=== PATIENT | male | born 1985 | race Caucasian/White ===

== ENCOUNTER 2023-10-26 14:45 | Emergency (ER) | payer SELFPAY ==
[2023-10-26 15:00] VITALS: BP 140/79; PULSE 72; RESP 12; TEMP 36.8; O2SAT 99; BMI 44.0
--- NOTE | 2023-10-26 15:20 | XR_ITS ---
FINAL REPORT CLINICAL HISTORY: Twisted ankle FINDINGS: Right foot Three views were obtained. There are healed or healing fractures of the 2nd through 5th proximal metatarsals. There is a healing fracture line at the base of the 4th metatarsal, may represent nonunion. Large accessory navicular is identified. IMPRESSION: Healing fractures of the 2nd through 5th proximal metatarsals with possible nonunion of the 4th metatarsal. Reviewed, Interpreted and Dictated by Kun Land MD Transcribed by Caro Farooq Authenticated and [facility]
--- NOTE | 2023-10-26 15:20 | XR_ITS ---
FINAL REPORT CLINICAL HISTORY: twisted ankle FINDINGS: Right ankle Three views were obtained. There is no acute fracture or dislocation. The joint spaces appear normal. There is soft tissue swelling. IMPRESSION: No acute process. Reviewed, Interpreted and Dictated by Kun Land MD Transcribed by Caro Farooq Authenticated and [facility]
--- NOTE | 2023-10-26 15:21 | ED_ITS ---
Discharge Plan Disposition Patient Disposition: Home, Self-Care Condition: Good Prescriptions Prescriptions: New ibuprofen [IBU] 800 mg tablet 800 mg PO Q8HP PRN (Reason: Moderate Pain) Qty: 30 0RF Referrals Follow up/Referrals: Provider,Referral, [Primary Care Provider] - See instructions Dari Hackett DPM [Staff Physician] - See instructions Activity Restrictions/Add. Instructions Additional Instructions/Restrictions: Rest the extremity, Elevate the extremity as tolerated while you are resting. Take ibuprofen for pain. I sent in a prescription to your pharmacy. Follow up with Dr. Hackett (podiatry). I put in a referral but you need to call her office and schedule an appointment. Follow up with your regular doctor. GO TO THE ER FOR ANY WORSENING SYMPTOMS Clinical Impressions Clinical Impression: Foot fracture, right Stand Alone Forms Stand Alone Forms: Work/School Release Instructions Patient Instructions: How to Use Crutches, Foot Fracture, DI for Foot Fracture, How to Use a Walking Boot Discharge ED Provider: Yuniel Newman [facility] [place], [place] General Stated complaint: right foot pain Time Seen by Provider: 10/26/23 15:21 History of Present Illness Provider Complaint: He states that he twisted his right foot and ankle about 10 days ago. Since then he has had right foot pain and swelling. He states that walking and bearing weight on the foot makes the pain worse. Related Data Previous Rx's Medication Instructions Recorded ibuprofen 800 mg tablet (IBU) 800 mg PO Q8HP PRN Moderate Pain 10/26/23 #30 tabs Allergies Allergy/AdvReac Type Severity Reaction Status Date / Time No Known Allergies Allergy Verified 10/26/23 15:35 [facility] Disclaimer: The information contained in this section may have been updated after the patient was seen, as this information can be updated by other users. Social History Smoking Status: Never smoker alcohol intake: never current occupational status: employed Travel in the last 8 weeks: None ROS Obtained: Yes All systems reviewed & no additional complaints except as documented Constitutional Constitutional: Denies chills and Denies fever(s) Eyes Eyes: Denies eye discharge ENT Ears, Nose, Mouth, and Throat: Denies dizziness, Denies otalgia and Denies sore throat Cardiovascular Cardiovascular: Denies chest pain Respiratory Respiratory: Denies shortness of breath, Denies chest congestion, Denies cough, Denies stridor and Denies wheezing Gastrointestinal Gastrointestingal: Denies nausea or vomiting Musculoskeletal Musculoskeletal: Reports as per HPI Integumentary/Breasts Skin/Breast: Denies redness, Denies rash and Denies wounds Neurologic Neurologic: Denies dizziness and Denies paresthesias Allergic/Immunologic Allergic/Immunologic: Denies wheezing Physical Exam General General appearance: alert and in no apparent distress Head Head exam: atraumatic, normocephalic and normal inspection Eye Eye exam: Present normal appearance, PERRL and EOMI ENT ENT exam: Present normal exam, normal oropharynx, mucous membranes moist, TM's normal bilaterally and normal external ear exam Neck Neck exam: Present normal inspection, full ROM and trachea midline; Absent meningismus or lymphadenopathy Chest Chest inspection: Present normal inspection and symmetric chest wall rise; Absent tenderness Respiratory Respiratory exam: Present normal lung sounds bilaterally; Absent respiratory distress Cardiovascular Cardiovascular exam: Present regular rate and normal rhythm; Absent JVD Abdominal Exam Abdominal exam: Present soft and normal bowel sounds; Absent distention, tenderness or guarding Extremities Exam Extremities exam: Present normal capillary refill; Absent calf tenderness Expanded Lower Extremity Exam Right: Knee exam: Present normal inspection, full ROM and knee extension intact; Absent tenderness Lower leg exam: Present normal inspection, full ROM and Achilles tendon intact; Absent tenderness or Homans' sign Ankle exam: Present normal inspection and full ROM; Absent tenderness, swelling, abrasion, laceration, ecchymosis, deformity, crepitus, dislocation, erythema, tenderness over talofibular lig or anterior draw sign Foot/toe exam: Present tenderness and swelling; Absent full ROM, abrasion, laceration, ecchymosis, deformity, crepitus, dislocation, erythema, amputation, puncture wound, foreign body, calcaneal tenderness, tenderness at base of 5th metatarsal, nail avulsion or subungual hematoma Neurovascular/Tendon exam: Present normal capillary refill; Absent pulse deficit, motor deficit, sensory deficit, tendon deficit or extremity cold to touch Gait: observed and normal Back Exam Back exam: Present normal inspection; Absent tenderness Neurological Exam Neurological exam: Present alert and oriented X3 Psychiatric Psychiatric exam: Present normal affect and normal mood Skin Skin exam: Present warm, dry, intact and normal color Lymphatic Lymphatic Findings: no adenopathy Medical Decision Making Bradley Inquiry Pt receiving controlled substance: No Procedures Risk/Benefits of Procedure(s) Were Explained: Yes Orthopedic Splinting/Casting Injury #1: Side: right Lower Extremity Injury Location: ankle and foot Lower Extremity Immobilizer: boot orthosis Other Orthopedic Equipment: crutches Post Cast/Splinting Neuro Status: intact and no change Post Cast/Splinting Vasc Status: intact and no change
[2023-10-26 17:40] VITALS: BP 140/79; PULSE 72; RESP 12; TEMP 36.8; O2SAT 99
== END 2023-10-26 17:40 | disposition home or self-care (01) ==
LOC: ER 14:51 → UTC 15:00
PROVIDERS: Emergency Provider Nurse Practitioner Family
DX: S92.901A Unspecified fracture of right foot, initial encounter for closed fracture (principal); M79.671 Pain in right foot; X50.1XXA Overexertion from prolonged static or awkward postures, initial encounter
CPT/HCPCS: 73610; 73630; 99204; 99212; G0463

== ENCOUNTER 2024-01-04 14:38 | Emergency (ER) | payer OTHER, SELFPAY ==
[2024-01-04 15:05] VITALS: BP 128/66; PULSE 79; RESP 18; TEMP 36.9; O2SAT 99; BMI 44.0
--- NOTE | 2024-01-04 15:10 | ED_ITS ---
Discharge Plan Disposition Patient Disposition: Home, Self-Care Condition: Good Prescriptions Prescriptions: New doxycycline monohydrate 100 mg tablet 100 mg PO Q12 10 Days Qty: 20 0RF triamcinolone acetonide 0.1 % cream 1 applic topical BID PRN (Reason: itching) Qty: 30 0RF methylprednisolone 4 mg Tablets,Dose Pack 4 mg PO DIRECTED 6 Days Qty: 21 0RF Rx Instructions: Take 1 pack as directed for 6 days Referrals Follow up/Referrals: Lupe Howard MD [Referring] - See instructions Provider,MD Khari [Primary Care Provider] - See instructions Activity Restrictions/Add. Instructions Additional Instructions/Restrictions: Use the medication as directed. Don't put the topical steroids (triamcinolone) on your face or your groin. Follow up with your regular doctor. Follow up with the urban design consultant if you continue to have this problem. I put in a referral to Dr. Howard. Her office phone number will be on this paperwork. GO TO THE ER FOR ANY WORSENING SYMPTOMS OR CONCERNS Clinical Impressions Clinical Impression: Atopic dermatitis Stand Alone Forms Stand Alone Forms: Work/School Release Instructions Patient Instructions: DI for Atopic Dermatitis-Adult, Triamcinolone Topical, Doxycycline, Methylprednisolone Discharge ED Provider: Yuniel Newman [facility] [place] HPI General Stated complaint: rash Time Seen by Provider: 01/04/24 15:10 History of Present Illness Provider Complaint: He states that he has had a rash on the front of his thighs and his upper back for the past 2 months approximately. He states that he has a history of eczema, but he is unsure if that is what he is having now. He states that the areas do itch. Related Data Previous Rx's Medication Instructions Recorded doxycycline monohydrate 100 mg 100 mg PO Q12 10 days #20 tabs 01/04/24 tablet methylprednisolone 4 mg tablets in 4 mg PO DIRECTED 6 days #21 tabs 01/04/24 a dose pack triamcinolone acetonide 0.1 % 1 applic topical BID PRN itching 01/04/24 topical cream #30 grams Allergies Allergy/AdvReac Type Severity Reaction Status Date / Time No Known Allergies Allergy Verified 01/04/24 15:30 [facility] Disclaimer: The information contained in this section may have been updated after the patient was seen, as this information can be updated by other users. Social History Smoking Status: Never smoker alcohol intake: never current occupational status: employed Travel in the last 8 weeks: None ROS Obtained: Yes All systems reviewed & no additional complaints except as documented Constitutional Constitutional: Denies chills and Denies fever(s) Eyes Eyes: Denies eye discharge ENT Ears, Nose, Mouth, and Throat: Denies dizziness, Denies otalgia and Denies sore throat Cardiovascular Cardiovascular: Denies chest pain Respiratory Respiratory: Denies shortness of breath, Denies chest congestion, Denies cough, Denies stridor and Denies wheezing Gastrointestinal Gastrointestingal: Denies nausea or vomiting Musculoskeletal Musculoskeletal: Reports system reviewed and no additional complaints, except as documented and Denies arthralgias Integumentary/Breasts Skin/Breast: Reports as per HPI and Reports rash Neurologic Neurologic: Denies dizziness and Denies paresthesias Allergic/Immunologic Allergic/Immunologic: Denies wheezing Physical Exam General General appearance: alert and in no apparent distress Head Head exam: atraumatic, normocephalic and normal inspection Eye Eye exam: Present normal appearance, PERRL and EOMI ENT ENT exam: Present normal exam, normal oropharynx, mucous membranes moist, TM's normal bilaterally and normal external ear exam Neck Neck exam: Present normal inspection, full ROM and trachea midline; Absent meningismus or lymphadenopathy Chest Chest inspection: Present normal inspection and symmetric chest wall rise; Absent tenderness Respiratory Respiratory exam: Present normal lung sounds bilaterally; Absent respiratory distress Cardiovascular Cardiovascular exam: Present regular rate and normal rhythm; Absent JVD Abdominal Exam Abdominal exam: Present soft and normal bowel sounds; Absent distention, tenderness or guarding Extremities Exam Extremities exam: Present normal inspection, full ROM and normal capillary refill; Absent calf tenderness Back Exam Back exam: Present normal inspection; Absent tenderness Neurological Exam Neurological exam: Present alert and oriented X3 Psychiatric Psychiatric exam: Present normal affect and normal mood Skin Skin exam: Present rash Lymphatic Lymphatic Findings: no adenopathy Medical Decision Making Medical Records Medical records reviewed: No I reviewed the patient's medical records. Bradley Inquiry Pt receiving controlled substance: No
[2024-01-04 16:12] VITALS: BP 128/66; PULSE 79; RESP 18; TEMP 36.9; O2SAT 99
== END 2024-01-04 16:12 | disposition home or self-care (01) ==
PROVIDERS: Emergency Provider Nurse Practitioner Family
DX: L20.9 Atopic dermatitis, unspecified (principal)
CPT/HCPCS: 99212; 99214; G0463

== ENCOUNTER 2024-01-08 11:48 | Emergency (ER) | payer OTHER, SELFPAY ==
[2024-01-08 11:55] VITALS: BP 134/79; PULSE 78; RESP 21; TEMP 36.8; O2SAT 99; BMI 44.7
--- NOTE | 2024-01-08 12:00 | XR_ITS ---
PROCEDURE INFORMATION: Exam: XR Right Ankle Exam date and time: 01/08/2024 12:02 PM Age: 38 years old Clinical indication: Pain; Ankle; Right; Additional info: Stepped in a hole TECHNIQUE: Imaging protocol: Radiologic exam of the right ankle. Views: 3 or more views. COMPARISON: CR XR ANKLE RT MIN 3V 10/26/2023 3:54 PM FINDINGS: Bones/joints: Normal. Soft tissues: Normal. IMPRESSION: No acute findings.
--- NOTE | 2024-01-08 12:00 | XR_ITS ---
PROCEDURE INFORMATION: Exam: XR Right Foot Exam date and time: 01/08/2024 12:00 PM Age: 38 years old Clinical indication: Pain; Foot; Right; Additional info: Stepped in a hole TECHNIQUE: Imaging protocol: Radiologic exam of the right foot. Views: 3 or more views. COMPARISON: CR XR FOOT RT MIN 3V 10/26/2023 3:57 PM FINDINGS: Bones/joints: Periosteal reaction demonstrated in association with 4th metatarsal fracture. Fracture plane still visible. Fracture planes involving the second, 3rd and 4th Soft tissues: Normal. IMPRESSION: 1. Healed 2nd 3rd and 4th metatarsal fractures. 2. Healing 4th metatarsal fracture. Nonunion could not be excluded.
--- NOTE | 2024-01-08 12:25 | ED_ITS ---
Discharge Plan Disposition Patient Disposition: Home, Self-Care Condition: Good Prescriptions Prescriptions: No Action No Known Home Medications Referrals Follow up/Referrals: Provider,Referral, MD [Primary Care Provider] - See instructions Dari Hackett DPM [Staff Physician] - See instructions Activity Restrictions/Add. Instructions Additional Instructions/Restrictions: Rest the extremity, apply ice for 15 minutes as tolerated three or four times per day, Wear the padmaja wrap for compression, Elevate the extremity as tolerated while you are resting. Take ibuprofen for pain. Follow up with Dr. Hackett (podiatry) as instructed before. I put in a referral then. You need to call her office and schedule an appointment. Keep using the crutches and the boot that we gave you on your last visit. Follow up with your regular doctor. GO TO THE ER FOR ANY WORSENING SYMPTOMS Clinical Impressions Clinical Impression: Foot fracture, right Stand Alone Forms Stand Alone Forms: Work/School Release Instructions Patient Instructions: How to Use Crutches, DI for Foot Fracture, How to Use a Walking Boot Discharge ED Provider: Yuniel Nemwan [facility] General Stated complaint: AO 01/07 10:49 Right foot and ankle pain swelling Mode of Arrival: Ambulatory Source of Information: Patient Limitations: No Limitations Time Seen by Provider: 01/08/24 12:05 Description of Symptoms (Recalled from Triage Doc. by RN): PATIENT C/O PAIN AND SWELLING TO RIGHT FOOT AFTER STEPPING IN A HOLE TODAY HEENT Symptoms (Recalled from RN notes): No Resp Symptoms (Recalled from RN notes): No Skin Symptoms (Recalled from RN notes): No MS Symptoms (Recalled from RN notes): Yes Functional Status (Recalled from RN notes): WNL History of Present Illness Provider Complaint: He states that he stepped into a hole in his yard today and began have right foot pain again. He was diagnosed with a broken right foot on 10/26/23. He states that he did not follow up with ortho or podiatry after that visit. Related Data Home Medications Medication Instructions Recorded Confirmed No Known Home Medications 01/08/24 01/08/24 Allergies Allergy/AdvReac Type Severity Reaction Status Date / Time No Known Allergies Allergy Verified 01/04/24 15:30 Worker's Comp Is this a Worker's Comp case?: No [facility] Disclaimer: The information contained in this section may have been updated after the patient was seen, as this information can be updated by other users. Medical History (Updated 01/08/24 @ 13:08 by Yuniel Newman APRN) No significant past medical history Social History Smoking Status: Never smoker alcohol intake: never current occupational status: employed Travel in the last 8 weeks: None ROS Obtained: Yes All systems reviewed & no additional complaints except as documented Constitutional Constitutional: Denies chills and Denies fever(s) Eyes Eyes: Denies eye discharge ENT Ears, Nose, Mouth, and Throat: Denies dizziness, Denies otalgia and Denies sore throat Cardiovascular Cardiovascular: Denies chest pain Respiratory Respiratory: Denies shortness of breath, Denies chest congestion, Denies cough, Denies stridor and Denies wheezing Gastrointestinal Gastrointestingal: Denies nausea or vomiting Musculoskeletal Musculoskeletal: Reports as per HPI Integumentary/Breasts Skin/Breast: Denies rash Neurologic Neurologic: Denies dizziness and Denies paresthesias Allergic/Immunologic Allergic/Immunologic: Denies wheezing Physical Exam General General appearance: alert and in no apparent distress Head Head exam: atraumatic, normocephalic and normal inspection Eye Eye exam: Present normal appearance, PERRL and EOMI ENT ENT exam: Present normal exam, normal oropharynx, mucous membranes moist, TM's normal bilaterally and normal external ear exam Neck Neck exam: Present normal inspection, full ROM and trachea midline; Absent meningismus or lymphadenopathy Chest Chest inspection: Present normal inspection and symmetric chest wall rise; Absent tenderness Respiratory Respiratory exam: Present normal lung sounds bilaterally; Absent respiratory distress Cardiovascular Cardiovascular exam: Present regular rate and normal rhythm; Absent JVD Abdominal Exam Abdominal exam: Present soft and normal bowel sounds; Absent distention, tenderness or guarding Extremities Exam Extremities exam: Present normal capillary refill; Absent calf tenderness Expanded Lower Extremity Exam Right: Knee exam: Present normal inspection, full ROM and knee extension intact; Absent tenderness Lower leg exam: Present normal inspection, full ROM and Achilles tendon intact; Absent tenderness or Homans' sign Ankle exam: Present normal inspection and full ROM; Absent tenderness Foot/toe exam: Present tenderness and swelling; Absent full ROM, abrasion, laceration, ecchymosis, deformity, crepitus, dislocation, erythema, amputation, puncture wound, foreign body, calcaneal tenderness, tenderness at base of 5th metatarsal, nail avulsion or subungual hematoma Neurovascular/Tendon exam: Present normal capillary refill and normal 2- point discrimination; Absent pulse deficit, motor deficit, sensory deficit, tendon deficit, extremity cold to touch or pallor Gait: observed and limited by pain Back Exam Back exam: Present normal inspection; Absent tenderness Neurological Exam Neurological exam: Present alert and oriented X3 Psychiatric Psychiatric exam: Present normal affect and normal mood Skin Skin exam: Present warm, dry, intact and normal color Lymphatic Lymphatic Findings: no adenopathy Medical Decision Making Medical Records Medical records reviewed: No I reviewed the patient's medical records. Bradley Inquiry Pt receiving controlled substance: No Vital Signs: 01/08/24 11:55 Temperature 98.3 F Temperature Source Oral Pulse Rate [Left Brachial] 78 Respiratory Rate 21 Blood Pressure [Left Arm] 134/79 Blood Pressure Mean [Left Arm] 97 Blood Pressure Source [Left Arm] Automatic Cuff Blood Pressure Position [Left Arm] Sitting 02 Sat by Pulse Oximetry 99 Oxygen Delivery Method Room Air Orders (Tests/Meds): ORDERS Category Date Time Status Ankle XR -Right minimum 3 Views [XR ankle RT min 3V] Exams 01/08/24 12:00 Taken Stat XR foot RT min 3V Stat Exams 01/08/24 12:00 Taken Radiology Data #1: Image(s): Foot/Toes Image Reviewed: Yes I reviewed the patient's radiology image and Yes I have reviewed radiologist's interpretation Preliminary Findings: Abnormal Accession No. : [id number] Patient Name / ID : CHECO JAIMES / [id number] Exam Date : 01/08/2024 12:00:30 ( Final ) Study Comment : Sex / Age : M / 38Y Creator : ALMITA LIND Dictator : Wireless Construction Manager : [employer] Hospitalist : ALMITA LIND Approver2 : Report Date : 01/08/2024 12:42:53 My Comment : PROCEDURE INFORMATION: Exam: XR Right Foot Exam date and time: 01/08/2024 12:00 PM Age: 38 years old Clinical indication: Pain; Foot; Right; Additional info: Stepped in a hole TECHNIQUE: Imaging protocol: Radiologic exam of the right foot. Views: 3 or more views. COMPARISON: CR XR FOOT RT MIN 3V 10/26/2023 3:57 PM FINDINGS: Bones/joints: Periosteal reaction demonstrated in association with 4th metatarsal fracture. Fracture plane still visible. Fracture planes involving the second, 3rd and 4th Soft tissues: Normal. IMPRESSION: 1. Healed 2nd 3rd and 4th metatarsal fractures. 2. Healing 4th metatarsal fracture. Nonunion could not be excluded. #2: Image(s): Ankle Image Reviewed: Yes I reviewed the patient's radiology image and Yes I have reviewed radiologist's interpretation Preliminary Findings: No Fracture Seen Accession No. : [id number] Patient Name / ID : CHECO JAIMES / [id number] Exam Date : 01/08/2024 12:02:00 ( Final ) Study Comment : Sex / Age : M / 38Y Creator : ALMITA LIND Dictator : Wireless Construction Manager : [employer] Hospitalist : ALMITA LIND Approver2 : Report Date : 01/08/2024 12:43:56 My Comment : PROCEDURE INFORMATION: Exam: XR Right Ankle Exam date and time: 01/08/2024 12:02 PM Age: 38 years old Clinical indication: Pain; Ankle; Right; Additional info: Stepped in a hole TECHNIQUE: Imaging protocol: Radiologic exam of the right ankle. Views: 3 or more views. COMPARISON: CR XR ANKLE RT MIN 3V 10/26/2023 3:54 PM FINDINGS: Bones/joints: Normal. Soft tissues: Normal. IMPRESSION: No acute findings.
[2024-01-08 13:25] VITALS: BP 134/79; PULSE 78; RESP 21; TEMP 36.8; O2SAT 99
== END 2024-01-08 13:28 | disposition home or self-care (01) ==
PROVIDERS: Emergency Provider Nurse Practitioner Family
DX: M79.671 Pain in right foot (principal); R22.41 Localized swelling, mass and lump, right lower limb; S92.901D Unspecified fracture of right foot, subsequent encounter for fracture with routine healing; W18.42XA Slipping, tripping and stumbling without falling due to stepping into hole or opening, initial encounter; X50.1XXD Overexertion from prolonged static or awkward postures, subsequent encounter
CPT/HCPCS: 73610; 73630; 99212; 99213; G0463

== ENCOUNTER 2024-03-14 18:01 | Emergency (ER) | payer OTHER, SELFPAY ==
[2024-03-14 18:11] VITALS: BP 149/83; PULSE 89; RESP 16; TEMP 36.7; O2SAT 99; BMI 44.7
--- NOTE | 2024-03-14 18:16 | ED_ITS ---
Discharge Plan Disposition Patient Disposition: Home, Self-Care Condition: Good Prescriptions Prescriptions: New clotrimazole 1 % cream 1 applic topical BID 28 Days Qty: 90 0RF Referrals Follow up/Referrals: Provider,Referral, MD [Primary Care Provider] - See instructions Activity Restrictions/Add. Instructions Additional Instructions/Restrictions: Use the medication as prescribed. Try to stay as dry as you can while you are working. Follow up with your primary care physician. 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 GO TO THE ER FOR WORSENING SYMPTOMS OR CONCERNS Clinical Impressions Clinical Impression: Tinea cruris Stand Alone Forms Stand Alone Forms: Work/School Release Instructions Patient Instructions: Tinea Cruris: AKA Jock Itch, Clotrimazole Topical Discharge ED Provider: Yuniel Newman [facility] [place] General Stated complaint: rash Mode of Arrival: Ambulatory Source of Information: Patient Limitations: No Limitations Time Seen by Provider: 03/14/24 18:14 Description of Symptoms (Recalled from Triage Doc. by RN): pt c/o an itching/burning rash on his trunk, back and groin. this has been ongoing since 03/11. pt reports he gets this same rash yearly in the summer. pt states he has an appointment with dermatology but he was unable to get in for another two weeks. HEENT Symptoms (Recalled from RN notes): No Resp Symptoms (Recalled from RN notes): No Skin Symptoms (Recalled from RN notes): Yes MS Symptoms (Recalled from RN notes): No Functional Status (Recalled from RN notes): wnl History of Present Illness Provider Complaint: He states that he has had an itchy rash in his groin area and his upper thigh areas. He has a history of getting jock itch and that is what he thinks is happening now. Related Data Previous Rx's Medication Instructions Recorded clotrimazole 1 % topical cream 1 applic topical BID 4 weeks #90 03/14/24 grams Allergies Allergy/AdvReac Type Severity Reaction Status Date / Time No Known Allergies Allergy Verified 03/14/24 18:15 Worker's Comp Is this a Worker's Comp case?: No [facility] Disclaimer: The information contained in this section may have been updated after the patient was seen, as this information can be updated by other users. Medical History (Updated 03/14/24 @ 18:34 by Yuniel Newman APRN) No significant past medical history Social History Smoking Status: Never smoker alcohol intake: never current occupational status: employed Travel in the last 8 weeks: None ROS Obtained: Yes All systems reviewed & no additional complaints except as documented Constitutional Constitutional: Denies chills, Reports fever(s) and Reports poor appetite Eyes Eyes: Denies eye discharge ENT Ears, Nose, Mouth, and Throat: Denies ear discharge, Reports otalgia, Denies hearing loss, Denies sinus pain and Reports sore throat Cardiovascular Cardiovascular: Denies chest pain and Denies dyspnea Respiratory Respiratory: Denies chest congestion, Reports cough and Denies dyspnea Gastrointestinal Gastrointestingal: Denies abdominal pain, diarrhea, nausea or vomiting Musculoskeletal Musculoskeletal: Denies arthralgias Integumentary/Breasts Skin/Breast: Denies rash Physical Exam General General appearance: alert and in no apparent distress Head Head exam: atraumatic, normocephalic and normal inspection Eye Eye exam: Present normal appearance; Absent PERRL or EOMI ENT ENT exam: Present mucous membranes moist and normal external ear exam Expanded ENT Exam TM/Canal exam: Bilateral TM: erythema, bulging and effusion Nose exam: Absent sinus tenderness Nasal speculum exam: Bilateral: normal Mouth exam: Present normal external inspection and other; Absent drooling Teeth exam: Present normal inspection Throat exam: Present tonsillar erythema and tonsillomegaly Neck Neck exam: Present normal inspection, full ROM and trachea midline; Absent tenderness, meningismus or lymphadenopathy Chest Chest inspection: Present normal inspection and symmetric chest wall rise; Absent tenderness Respiratory Respiratory exam: Present normal lung sounds bilaterally; Absent respiratory distress, wheezes or stridor Cardiovascular Cardiovascular exam: Present regular rate, normal rhythm and normal heart sounds; Absent tachycardia or irregular rhythm Abdominal Exam Abdominal exam: Present soft and normal bowel sounds; Absent distention, tenderness, guarding, rebound or rigidity Extremities Exam Extremities exam: Present normal inspection and normal capillary refill; Absent tenderness, joint swelling or calf tenderness Back Exam Back exam: Present normal inspection and full ROM; Absent tenderness, CVA tenderness (R) or CVA tenderness (L) Neurological Exam Neurological exam: Present alert, oriented X3, CN II-XII intact, normal gait and reflexes normal; Absent motor sensory deficit Psychiatric Psychiatric exam: Present normal affect and normal mood Skin Skin exam: Present rash Lymphatic Lymphatic Findings: no adenopathy Medical Decision Making Medical Records Medical records reviewed: No I reviewed the patient's medical records. Bradley Inquiry Pt receiving controlled substance: No Vital Signs: 03/14/24 18:11 Temperature 98.1 F Temperature Source Oral Pulse Rate [Left] 89 Respiratory Rate 16 Blood Pressure [Right Arm] 149/83 H Blood Pressure Mean [Right Arm] 105 Blood Pressure Source [Right Arm] Automatic Cuff Blood Pressure Position [Right Arm] Sitting 02 Sat by Pulse Oximetry 99
[2024-03-14 18:41] VITALS: BP 149/83; PULSE 89; RESP 16; TEMP 36.7
== END 2024-03-14 18:43 | disposition home or self-care (01) ==
PROVIDERS: Emergency Provider Nurse Practitioner Family
DX: B35.6 Tinea cruris (principal)
CPT/HCPCS: 99212; 99214; G0463

== ENCOUNTER 2024-05-01 14:19 | Emergency (ER) | payer OTHER, SELFPAY ==
--- NOTE | 2024-05-01 15:54 | EXP.UTC ---
Discharge Plan Disposition Patient Disposition: Home, Self-Care Condition: Good Prescriptions Prescriptions: No Action clotrimazole 1 % cream 1 applic topical BID 28 Days Qty: 90 0RF Referrals Follow up/Referrals: Provider,Referral, MD [Primary Care Provider] - See instructions Activity Restrictions/Add. Instructions Additional Instructions/Restrictions: *Monitor Temp, Over the counter Motrin or Tylenol as directed/as needed Tylenol every 4 hours and Motrin every 6 hours (as long as your family doctor has told you that you can take it) for fever or pain. and straight to ER if unable to lower temp less than 101.0 after medication given *Sleep elevated *Humidifier/Vaporizer Follow up IMMEDIATELY for new or worsening symptoms or no Noticeable improvement over the next 48-72 hours. 911 for difficulty breathing or swallowing You were tested for today for COVID19 your test result should be back in the next 24 hours, you may check the [facility] [employer] [facility] for results of your test Clinical Impressions Clinical Impression: Exposure to COVID-19 virus Stand Alone Forms Stand Alone Forms: Work/School Release Instructions Patient Instructions: COVID-19 Viral Test, DI for COVID-19 (Suspected or Confirmed ) Print Language Print Language: Pashto Discharge ED Provider: Shawanda Alvares [facility] [place] General Stated complaint: covid test Time Seen by Provider: 05/01/24 15:54 History of Present Illness Provider Complaint: Patient states that he is needing to get tested for COVID States he is not having any symptoms but 3 people at work tested positive so he came in to get tested Related Data Previous Rx's ?Medication ?Instructions ?Recorded clotrimazole 1 % topical cream 1 applic topical BID 4 weeks #90 03/14/24 grams Allergies Allergy/AdvReac Type Severity Reaction Status Date / Time No Known Allergies Allergy Verified 03/14/24 18:15 [facility] Disclaimer: The information contained in this section may have been updated after the patient was seen, as this information can be updated by other users. Medical History (Updated 05/01/24 @ 15:56 by Shawanda Alvares APRN) No significant past medical history Social History Smoking Status: Never smoker alcohol intake: never current occupational status: employed Travel in the last 8 weeks: None ROS Obtained: Yes All systems reviewed & no additional complaints except as documented and Yes Systems reviewed as appropriate & no additional complaints except as documented Constitutional Constitutional: Reports system reviewed and no additional complaints, except as documented, Reports as per HPI, Denies body ache, Denies chills, Denies fever(s) and Denies headache(s) ENT Ears, Nose, Mouth, and Throat: Reports system reviewed and no additional complaints, except as documented, Reports as per HPI, Denies headache(s), Denies nasal congestion, Denies nasal discharge and Denies sore throat Cardiovascular Cardiovascular: Reports system reviewed and no additional complaints, except as documented and Reports as per HPI Respiratory Respiratory: Reports system reviewed and no additional complaints, except as documented and Reports as per HPI Gastrointestinal Gastrointestingal: Reports system reviewed and no additional complaints, except as documented and as per HPI; Denies abdominal pain, diarrhea, nausea or vomiting Neurologic Neurologic: Denies headache(s) Physical Exam General General appearance: alert and in no apparent distress ENT ENT exam: Present normal exam, normal oropharynx, mucous membranes moist and TM's normal bilaterally Respiratory Respiratory exam: Present normal lung sounds bilaterally; Absent respiratory distress or wheezes Cardiovascular Cardiovascular exam: Present regular rate, normal rhythm and normal heart sounds Neurological Exam Neurological exam: Present alert, oriented X3 an
[2024-05-01 15:55] VITALS: BP 131/67; PULSE 81; RESP 16; TEMP 37.1; O2SAT 98; BMI 44.3
[2024-05-01 15:59] VITALS: BP 131/67; PULSE 81; RESP 16; TEMP 37.1; O2SAT 98
== END 2024-05-01 15:59 | disposition home or self-care (01) ==
PROVIDERS: Emergency Provider Nurse Practitioner
DX: Z20.822 Contact with and (suspected) exposure to COVID-19 (principal)
CPT/HCPCS: 87635; 99212; G0463

== ENCOUNTER 2024-06-14 14:41 | Emergency (ER) | payer OTHER, SELFPAY ==
[2024-06-14 15:11] VITALS: BP 131/74; PULSE 75; RESP 20; TEMP 36.6; O2SAT 98; BMI 31.1
[2024-06-14 15:29] LABS: Microscopic, Urine URINE MICROSCOPIC (MICROSCOPIC)
--- NOTE | 2024-06-14 15:32 | ED_ITS ---
Discharge Plan Disposition Patient Disposition: Home, Self-Care Condition: Good Prescriptions Prescriptions: New doxycycline hyclate 100 mg capsule 100 mg PO Q12 10 Days Qty: 20 0RF Referrals Follow up/Referrals: Provider,Referral, MD [Primary Care Provider] - See instructions Activity Restrictions/Add. Instructions Additional Instructions/Restrictions: Drink plenty of fluids. Take tylenol or ibuprofen for pain or fever. Take the medications as directed. Follow up with your regular doctor. GO TO THE ER FOR ANY WORSENING SYMPTOMS We will culture the urine. That will tell what bacteria is causing your infection and which antibiotics will treat it best.This test takes 3 days to complete. Clinical Impressions Clinical Impression: Urethritis, Acute UTI Stand Alone Forms Stand Alone Forms: Work/School Release Instructions Patient Instructions: DI for Urinary Tract Infection (UTI), Doxycycline Print Language Print Language: Zimbabwean Discharge ED Provider: Yuniel Newman [facility] General Stated complaint: Pain and frequent urination Mode of Arrival: Ambulatory Source of Information: Patient Time Seen by Provider: 06/14/24 15:32 Description of Symptoms (Recalled from Triage Doc. by RN): BLADDER INFECTION, HOLDER WHEN HE PEES HEENT Symptoms (Recalled from RN notes): No Resp Symptoms (Recalled from RN notes): No Skin Symptoms (Recalled from RN notes): No MS Symptoms (Recalled from RN notes): No Functional Status (Recalled from RN notes): WNL Related Data Previous Rx's ?Medication ?Instructions ?Recorded doxycycline hyclate 100 mg capsule 100 mg PO Q12 10 days #20 caps 06/14/24 Allergies Allergy/AdvReac Type Severity Reaction Status Date / Time No Known Allergies Allergy Verified 03/14/24 18:15 Worker's Comp Is this a Worker's Comp case?: No [facility]SH [facility] Disclaimer: The information contained in this section may have been updated after the patient was seen, as this information can be updated by other users. Medical History (Updated 06/14/24 @ 16:04 by Yuniel Newman APRN) No significant past medical history Social History Smoking Status: Never smoker alcohol intake: never current occupational status: employed Travel in the last 8 weeks: None ROS Obtained: Yes All systems reviewed & no additional complaints except as documented Constitutional Constitutional: Denies chills and Denies fever(s) Eyes Eyes: Denies eye discharge ENT Ears, Nose, Mouth, and Throat: Denies dizziness, Denies otalgia and Denies sore throat Cardiovascular Cardiovascular: Denies chest pain Respiratory Respiratory: Denies shortness of breath, Denies chest congestion, Denies cough, Denies stridor and Denies wheezing Gastrointestinal Gastrointestingal: Denies nausea or vomiting Genitourinary Male Genitourinary: Reports as per HPI, Denies hematuria, Reports urinary frequency and Reports urinary urgency Musculoskeletal Musculoskeletal: Reports system reviewed and no additional complaints, except as documented and Denies arthralgias Integumentary/Breasts Skin/Breast: Denies rash Neurologic Neurologic: Denies dizziness and Denies paresthesias Allergic/Immunologic Allergic/Immunologic: Denies wheezing Physical Exam General General appearance: alert and in no apparent distress Head Head exam: atraumatic, normocephalic and normal inspection Eye Eye exam: Present normal appearance, PERRL and EOMI ENT ENT exam: Present normal exam, normal oropharynx, mucous membranes moist, TM's normal bilaterally and normal external ear exam Neck Neck exam: Present normal inspection, full ROM and trachea midline; Absent meningismus or lymphadenopathy Chest Chest inspection: Present normal inspection and symmetric chest wall rise; Absent tenderness Respiratory Respiratory exam: Present normal lung sounds bilaterally; Absent respiratory distress Cardiovascular Cardiovascular exam: Present regular rate and normal rhythm; Absent JVD Abdominal Exam Abdominal exam: Present soft and normal bowel sounds; Absent distention, tenderness or guarding Extremities Exam Extremities exam: Present normal inspection, full ROM and normal capillary refill; Absent calf tenderness Back Exam Back exam: Present normal inspection; Absent tenderness, CVA tenderness (R), CVA tenderness (L), muscle spasm, paraspinal tenderness, vertebral tenderness, rashes, sciatic notch tenderness (R), sciatic notch tenderness (L), straight leg raise (R) or straight leg raise (L) Neurological Exam Neurological exam: Present alert and oriented X3 Psychiatric Psychiatric exam: Present normal affect and normal mood Skin Skin exam: Present warm, dry, intact and normal color Lymphatic Lymphatic Findings: no adenopathy Medical Decision Making Medical Records Medical records reviewed: No I reviewed the patient's medical records. Screening: Per USPSTF and CDC recommendations, given the prevalence of disease in our region, it is our hospital?s policy to screen for HIV and viral Hepatitis for all patients aged 18 and over and those with ongoing risk factors. Bradley Inquiry Pt receiving controlled substance: No Vital Signs: 06/14/24 15:11 Temperature 97.8 F Temperature Source Oral Pulse Rate [Left Radial] 75 Respiratory Rate 20 Blood Pressure [Left Arm] 131/74 Blood Pressure Mean [Left Arm] 93 02 Sat by Pulse Oximetry 98 Lab Data Lab results reviewed: Yes I reviewed the patient's lab results. Orders (Tests/Meds): ORDERS Category Date Time Status UA [Urinalysis and Microscopic] Stat Lab 06/14/24 15:08 Received
[2024-06-14 15:44] LABS: Appearance,Urine CLEAR (Clear); Bilirubin,Urine Negative (Negative); Blood, Urine Negative (Negative); Color,Urine YELLOW (Yellow); Glucose,Urine (UA) Negative (Negative); Ketones,Urine Negative (Negative); Leukocyte Esterase,Urine Negative (Negative); Nitrate,Urine Negative (Negative); Protein,Urine Negative (Negative)
[2024-06-14 15:56] LABS: Bacteria,Urine 1+ /lpf; Mucus,Urine 1+ /lpf; Squamous Epithelial Cell,Urine Occasional #/hpf (0-5); WBC,Urine Occasional #/hpf (0-3)
[2024-06-14 16:10] VITALS: BP 131/74; PULSE 75; RESP 20; TEMP 36.6
== END 2024-06-14 16:10 | disposition home or self-care (01) ==
PROVIDERS: Emergency Provider Nurse Practitioner Family
DX: N34.1 Nonspecific urethritis (principal)
CPT/HCPCS: 81001; 87086; 99213; G0381

== ENCOUNTER 2024-08-14 13:04 | Emergency (ER) | payer OTHER, SELFPAY ==
[2024-08-14 13:18] VITALS: BP 154/88; PULSE 84; RESP 20; TEMP 36.7; O2SAT 96; BMI 46.3
[2024-08-14 13:34] LABS: UTC Influenza A Antigen Negative (Negative); UTC Influenza B Antigen Negative (Negative)
--- NOTE | 2024-08-14 14:05 | EXP.UTC ---
Discharge Plan Disposition Patient Disposition: Home, Self-Care Condition: Good Referrals Follow up/Referrals: Provider,Referral, MD [Primary Care Provider] - See instructions Activity Restrictions/Add. Instructions Additional Instructions/Restrictions: *Monitor Temp, Over the counter Motrin or Tylenol as directed/as needed Tylenol every 4 hours and Motrin every 6 hours (as long as your family doctor has told you that you can take it) for fever or pain. and straight to ER if unable to lower temp less than 101.0 after medication given *Warm salt water gargles may help to soothe the throat *Throat Lozenges? *Warm fluids like tea with honey may help to soothe the throat? *Sleep elevated *Humidifier/Vaporizer Follow up IMMEDIATELY for new or worsening symptoms or no Noticeable improvement over the next 48-72 hours. 911 for difficulty breathing or swallowing Clinical Impressions Clinical Impression: Viral upper respiratory infection Stand Alone Forms Stand Alone Forms: Work/School Release Instructions Patient Instructions: DI for Viral Upper Respiratory Infection -- Adult Print Language Print Language: Dutch Discharge ED Provider: Shawanda Alvares [facility] [place] HPI General Stated complaint: chills, vomiting, fever, cough, body aches Mode of Arrival: Ambulatory Source of Information: Patient Time Seen by Provider: 08/14/24 14:06 Description of Symptoms (Recalled from Triage Doc. by RN): SICK OVER THE WEEKEND, HAD A FEVER, CHILLS AND BODY ACHES, STATES HE FEELS BETTER TODAY BUT NEEDS A WORK NOTE HEENT Symptoms (Recalled from RN notes): Yes Resp Symptoms (Recalled from RN notes): Yes Skin Symptoms (Recalled from RN notes): No MS Symptoms (Recalled from RN notes): No Functional Status (Recalled from RN notes): WNL History of Present Illness Provider Complaint: Patient states that he was sick over the weekend with body aches, chills, slight fever and not feeling well States today he is feeling better but needs a work note Related Data Allergies Allergy/AdvReac Type Severity Reaction Status Date / Time No Known Allergies Allergy Verified 03/14/24 18:15 Worker's Comp Is this a Worker's Comp case?: No [facility] Disclaimer: The information contained in this section may have been updated after the patient was seen, as this information can be updated by other users. Medical History (Updated 08/14/24 @ 14:11 by Shawanda Alvares APRN) No significant past medical history Social History Smoking Status: Never smoker alcohol intake: never current occupational status: employed Travel in the last 8 weeks: None ROS Obtained: Yes All systems reviewed & no additional complaints except as documented and Yes Systems reviewed as appropriate & no additional complaints except as documented Constitutional Constitutional: Reports system reviewed and no additional complaints, except as documented, Reports as per HPI, Reports body ache, Reports chills, Reports fever(s) and Reports headache(s) ENT Ears, Nose, Mouth, and Throat: Reports system reviewed and no additional complaints, except as documented, Reports as per HPI, Reports headache(s), Reports nasal congestion and Reports nasal discharge Cardiovascular Cardiovascular: Reports system reviewed and no additional complaints, except as documented and Reports as per HPI Respiratory Respiratory: Reports system reviewed and no additional complaints, except as documented and Reports as per HPI Neurologic Neurologic: Reports headache(s) Physical Exam General General appearance: alert and in no apparent distress ENT ENT exam: Present normal exam, normal oropharynx, mucous membranes moist and TM's normal bilaterally Chest Chest inspection: Present normal inspection and symmetric chest wall rise Respiratory Respiratory exam: Present normal lung sounds bilaterally; Absent respiratory distress or wheezes Cardiovascular Cardiovascular exam: Present regular rate, normal rhythm and normal heart sounds Abdominal Exam Abdominal exam: Present soft and normal bowel sounds; Absent distention or tenderness Neurological Exam Neurological exam: Present alert, oriented X3 and normal gait Medical Decision Making Medical Records Screening: Per USPSTF and CDC recommendations, given the prevalence of disease in our region, it is our hospital?s policy to screen for HIV and viral Hepatitis for all patients aged 18 and over and those with ongoing risk factors. Bradley Inquiry Pt receiving controlled substance: No Bradley was queried for this patient: No Vital Signs: 08/14/24 13:18 Temperature 98.1 F Temperature Source Oral Pulse Rate [Left Brachial] 84 Respiratory Rate 20 Blood Pressure [Left Arm] 154/88 H Blood Pressure Mean [Left Arm] 110 02 Sat by Pulse Oximetry 96 Lab Data Lab results reviewed: Yes I reviewed the patient's lab results. Lab Results 08/14/24 13:20: Influenza Type A Ag Negative, Influenza Type B Ag Negative
[2024-08-14 14:17] VITALS: BP 154/88; PULSE 84; RESP 20; TEMP 36.7
== END 2024-08-14 14:17 | disposition home or self-care (01) ==
PROVIDERS: Emergency Provider Nurse Practitioner
DX: J06.9 Acute upper respiratory infection, unspecified (principal); R50.9 Fever, unspecified; R51.9 Headache, unspecified; R09.81 Nasal congestion
CPT/HCPCS: 87804; 99212; G0381

== ENCOUNTER 2024-09-07 15:36 | Emergency (ER) | payer OTHER, SELFPAY ==
--- NOTE | 2024-09-07 16:07 | ED_ITS ---
Discharge Plan Disposition Patient Disposition: Home, Self-Care Condition: Good Referrals Follow up/Referrals: Provider,Referral, [Primary Care Provider] - See instructions Activity Restrictions/Add. Instructions Additional Instructions/Restrictions: Drink plenty of fluids. Take tylenol or ibuprofen for pain or fever. Follow up with your regular doctor. GO TO THE ER FOR ANY WORSENING SYMPTOMS Clinical Impressions Clinical Impression: Acute viral syndrome, Exposure to influenza Stand Alone Forms Stand Alone Forms: Work/School Release Instructions Patient Instructions: DI for Viral Syndrome Print Language Print Language: Uzbek Discharge ED Provider: Yuniel Newman [facility] General Stated complaint: body aches,sweatiness Time Seen by Provider: 09/07/24 16:07 History of Present Illness Provider Complaint: He states that he has felt bad for the past few days. He was notified by his employer that he has been exposed to influenza and that he should get checked if he is feeling bad. Related Data Allergies Allergy/AdvReac Type Severity Reaction Status Date / Time No Known Allergies Allergy Verified 03/14/24 18:15 [facility] Disclaimer: The information contained in this section may have been updated after the patient was seen, as this information can be updated by other users. Medical History (Updated 09/07/24 @ 16:41 by Yuniel Newman APRN) No significant past medical history Social History Smoking Status: Never smoker alcohol intake: never current occupational status: employed Travel in the last 8 weeks: None Have you lived/traveled outside US in past 30 days?: No Contact w/someone who lives/traveled outside US past 30 days?: No Exposure to someone with infectious disease in past 14 days?: No Do you have a fever (greater than 100.4 F or 38 C)?: No Have you tested positive for COVID-19: No Exposed to someone with COVID-19 in past 14 days?: No Do you have a sore throat?: No Do you have a cough?: Yes Do you have any weakness?: No Do you have any diarrhea?: No Are you experiencing any unusual bleeding?: No Do you have any muscle aches/pain?: Yes Do you have any abdominal pain?: No Are you experiencing loss of taste or smell?: No ROS Obtained: Yes All systems reviewed & no additional complaints except as documented Constitutional Constitutional: Reports chills and Reports fever(s) Eyes Eyes: Denies eye discharge ENT Ears, Nose, Mouth, and Throat: Reports as per HPI Cardiovascular Cardiovascular: Denies chest pain Respiratory Respiratory: Denies chest congestion and Reports cough Gastrointestinal Gastrointestingal: Reports nausea; Denies abdominal pain, constipation, cramping, diarrhea or vomiting Musculoskeletal Musculoskeletal: Denies arthralgias Integumentary/Breasts Skin/Breast: Denies rash Neurologic Neurologic: Denies paresthesias Physical Exam General General appearance: alert and in no apparent distress Head Head exam: atraumatic, normocephalic and normal inspection Eye Eye exam: Present normal appearance, PERRL and EOMI ENT ENT exam: Present normal exam, normal oropharynx, mucous membranes moist, TM's normal bilaterally and normal external ear exam Neck Neck exam: Present normal inspection, full ROM and trachea midline; Absent meningismus or lymphadenopathy Chest Chest inspection: Present normal inspection and symmetric chest wall rise; Absent tenderness Respiratory Respiratory exam: Present normal lung sounds bilaterally; Absent respiratory distress Cardiovascular Cardiovascular exam: Present regular rate and normal rhythm; Absent JVD Abdominal Exam Abdominal exam: Present soft and normal bowel sounds; Absent distention, tenderness or guarding Extremities Exam Extremities exam: Present normal inspection, full ROM and normal capillary refill; Absent calf tenderness Back Exam Back exam: Present normal inspection; Absent tenderness Neurological Exam Neurological exam: Present alert and oriented X3 Psychiatric Psychiatric exam: Present normal affect and normal mood Skin Skin exam: Present warm, dry, intact and normal color Lymphatic Lymphatic Findings: no adenopathy Medical Decision Making Medical Records Medical records reviewed: No I reviewed the patient's medical records. Screening: Per USPSTF and CDC recommendations, given the prevalence of disease in our region, it is our hospital?s policy to screen for HIV and viral Hepatitis for all patients aged 18 and over and those with ongoing risk factors. Bradley Inquiry Pt receiving controlled substance: No
[2024-09-07 16:18] VITALS: BP 141/76; PULSE 83; RESP 20; TEMP 37.1; O2SAT 98; BMI 46.3
[2024-09-07 16:25] LABS: UTC Influenza A Antigen Negative (Negative)
[2024-09-07 16:26] LABS: UTC Influenza B Antigen Negative (Negative)
[2024-09-07 16:42] VITALS: BP 141/76; PULSE 83; RESP 20; TEMP 37.1
[2024-09-07 16:50] LABS: Coronavirus 19, PCR Not Detected (NotDetected); Influenza A, PCR Not Detected (NotDetected); Influenza B, PCR Not Detected (NotDetected)
== END 2024-09-07 16:45 | disposition home or self-care (01) ==
PROVIDERS: Emergency Provider Nurse Practitioner Family
DX: B34.9 Viral infection, unspecified (principal)
CPT/HCPCS: 87636; 87804; 99213; G0381

== ENCOUNTER 2025-02-05 13:52 | Outpatient (CLI) | payer OTHER, SELFPAY ==
[2025-02-05 16:18] LABS: Coronavirus 19, PCR Not Detected (NotDetected); Human Rhinovirus Not Detected (NotDetected); Influenza A, PCR Not Detected (NotDetected); Influenza B, PCR Not Detected (NotDetected); Respiratory Syncytial Virus Not Detected (NotDetected)
== END 2025-02-05 23:59 | disposition home or self-care (01) ==
LOC: LAB.DROPOF 02-06 11:23
PROVIDERS: PCP Nurse Practitioner; Visit Provider Nurse Practitioner
DX: R52 Pain, unspecified (principal)
CPT/HCPCS: 87631

== ENCOUNTER 2025-04-09 13:53 | Emergency (ER) | payer OTHER, SELFPAY ==
[2025-04-09 14:00] VITALS: BP 125/72; PULSE 80; RESP 16; TEMP 36.9; O2SAT 98; BMI 44.0
--- NOTE | 2025-04-09 14:21 | HMH.EDGENADL ---
Discharge Plan Disposition Patient Disposition: Home, Self-Care Condition: Good Prescriptions Prescriptions: New doxycycline hyclate 100 mg capsule 100 mg PO BID 7 Days Qty: 14 0RF triamcinolone acetonide 0.1 % cream 1 applic topical DAILY Qty: 15 0RF No Action fluticasone propionate [Flonase Allergy Relief] 50 mcg/actuation spray,suspension 2 spray intranasal DAILY Qty: 16 2RF Rx Instructions: administer into each nostril daily azithromycin 250 mg tablet See Rx Instructions PO .COMPLEX Qty: 6 0RF Rx Instructions: For 250 mg dose pack: take 500 mg today (day 1), then 250 mg for 4 days (days 2-5) PO Referrals Follow up/Referrals: Lupe Howard MD [Referring, Dermatology] - See instructions Provider,MD Khari [Primary Care Provider, Medical] - See instructions Activity Restrictions/Add. Instructions Additional Instructions/Restrictions: Please return to the emergency department any worsening signs or symptoms, please follow-up with didactic instructor the upcoming days/weeks, please take your medication as prescribed. I recommend [id number] antihistamines/creams for your itching. Clinical Impressions Clinical Impression: Skin problem, Atopic dermatitis Stand Alone Forms Stand Alone Forms: Work/School Release Instructions Patient Instructions: Eczema Print Language Print Language: Yemeni Discharge ED Provider: Demar Dela Cruz Adult HPI <VANDANA Leggett - Last Filed: 04/09/25 14:41> General Chief complaint: Skin/Abscess/Foreign Body Stated complaint: rash all over body Time Seen by Provider: 04/09/25 13:58 Mode of Arrival: Ambulatory Source of Information: Patient Description of Symptoms (Recalled from ER Triage Doc. by RN): Patient states he has a itchy red rash on groin, lower abdomen. Patient states it has been there for 6 months. Has been unable to get in to see a didactic instructor. Has been to a clinic a few times, has been given a cream that he states he'll put on it a few days, it will get a little better but will come back with a vengeance History of Present Illness HPI narrative: 40-year-old male presents the emergency department with a rash that is located on his upper shoulders, trunk, back, and intertriginous area, sparing his genital area, endorses pruritus but no pain, no genital lesions, no urethral discharge, this been going on for 1 month, he has been unable to see a didactic instructor, he has been given cream, that will help with the itching , but he states it always comes back, he denies any fever chills chest pain shortness of breath nausea vomiting constipation diarrhea no urinary type symptoms, no risky sexual behavior/new sexual contacts, patient denies any alcohol tobacco or drug use, patient has no other real relevant past medical history only takes testosterone replacement therapy at home/via injections with outpatient facility. Patient upon chart review has previous diagnosis of atopic dermatitis. Initial triage vitals are unremarkable. 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 Please note that above description of symptoms, in this electronic medical record under categorization of recalled from ER triage doctor by RN are reflective of an initial nursing assessment, however, is not reflective of my full history and physical exam that was personally taken and clarified. Consequentially, this preceding description of symptoms, which may include the patient's categorized chief complaint in the EMR, do not reflect my personal clinical impression, and the ultimate description of history of present illness and patient stated complaints should be deferred to this section of the note. Unless stated otherwise or congruent with this section of the note, additional signs, symptoms, or incongruence should be interpreted as inaccurate with my clinical impression. Onset (ago): year(s) Related Data Previous Rx's ?Medication ?Instructions ?Recorded azithromycin 250 mg tablet See Rx Instructions PO .COMPLEX #6 02/05/25 tabs fluticasone propionate 50 2 spray intranasal DAILY #16 grams 02/05/25 mcg/actuation nasal spray,suspension (Flonase Allergy Relief) doxycycline hyclate 100 mg capsule 100 mg PO BID 7 days #14 caps 04/09/25 triamcinolone acetonide 0.1 % 1 applic topical DAILY #15 grams 04/09/25 topical cream Allergies Allergy/AdvReac Type Severity Reaction Status Date / Time Penicillins Allergy Severe Hives Verified 04/09/25 14:04 [facility] <VANDANA Leggett - Last Filed: 04/09/25 14:41> [facility] Disclaimer: The information contained in this section may have been updated after the patient was seen, as this information can be updated by other users. Medical History (Updated 04/09/25 @ 14:39 by VANDANA Leggett) Otitis media Skin problem No significant past medical history Social History Smoking Status: Current every day smoker alcohol intake: never current occupational status: employed Travel in the last 8 weeks?: None Have you lived/traveled outside US in past 30 days?: No Contact w/someone who lives/traveled outside US past 30 days?: No Exposure to someone with infectious disease in past 14 days?: No Do you have a fever (greater than 100.4 F or 38 C)?: No Have you tested positive for COVID-19?: No Exposed to someone with COVID-19 in past 14 days?: No Do you have a sore throat?: No Do you have a cough?: No Do you have any weakness?: No Do you have any diarrhea?: No Are you experiencing any unusual bleeding?: No Do you have any muscle aches/pain?: No Do you have any abdominal pain?: No Are you experiencing loss of taste or smell?: No <VANDANA Leggett - Last Filed: 04/09/25 14:41> ROS Obtained: Yes All systems reviewed & no additional complaints except as documented Physical Exam <VANDANA Leggett - Last Filed: 04/09/25 14:41> General General appearance: alert and in no apparent distress Head Head exam: atraumatic and normocephalic Eye Eye exam: Present PERRL and EOMI ENT ENT exam: Present mucous membranes moist Neck Neck exam: Present normal inspection Chest Chest inspection: Present normal inspection and symmetric chest wall rise Respiratory Respiratory exam: Present normal lung sounds bilaterally; Absent respiratory distress Cardiovascular Cardiovascular exam: Present regular rate and normal rhythm Abdominal Exam Abdominal exam: Present soft; Absent tenderness Extremities Exam Extremities exam: Present normal inspection Neurological Exam Neurological exam: Present alert and oriented X3 Psychiatric Psychiatric exam: Present normal affect Skin Skin exam: Present warm, dry, erythema and other (Multiple areas of plaque-like regions that are well-demarcated erythematous, with some scaling, noted on the back, trunk, intertriginous area, as well as the patient's upper shoulder area) Medical Decision Making <VANDANA Leggett - Last Filed: 04/09/25 14:41> Medical Records Medical records reviewed: Yes I reviewed the patient's medical records. Screening: Per USPSTF and CDC recommendations, given the prevalence of disease in our region, it is our hospital?s policy to screen for HIV and viral Hepatitis for all patients aged 18 and over and those with ongoing risk factors. Bradley Inquiry Pt receiving controlled substance: No Bradley was queried for this patient: No Vital Signs: 04/09/25 14:00 04/09/25 15:04 Temperature 98.4 F 98.0 F Temperature Source Oral Pulse Rate 78 Pulse Rate [Left Brachial] 80 Respiratory Rate 16 16 Blood Pressure 120/70 Blood Pressure [Left Arm] 125/72 Blood Pressure Mean [Left Arm] 89 Blood Pressure Source [Left Arm] Automatic Cuff Blood Pressure Position [Left Arm] Sitting 02 Sat by Pulse Oximetry 98 Oxygen Delivery Method Room Air Medical Decision Narrative: 40-year-old male presents emergency department with a rash waxing and waning, for 1 year, differential diagnose include but not limited to psoriasis, atopic dermatitis, contact dermatitis, eczema, cellulitis among others. I discussed this patient's case with the attending physician Patient has not had any new medications, no new detergents soaps, no other environmental exposure, chemical exposures, I do believe the patient has some degree of atopic dermatitis versus psoriasis, patient will need dermatology evaluation/referral, will give this to the patient here today, I will treat the patient with triamcinolone cream 0.1% cream, to use for the next 2 weeks, or until dermatology follow-up, also give the patient 100 mg p.o. doxycycline twice daily for 7 days to cover for any tickborne illness versus cellulitis as patient has some erythematous areas. Patient was given strict ED return precautions. Patient voiced understanding and agreement Contreet plan/discharge plan. <Demar Dela Cruz MD - Last Filed: 04/09/25 15:48> Vital Signs: 04/09/25 14:00 04/09/25 15:04 Temperature 98.4 F 98.0 F Temperature Source Oral Pulse Rate 78 Pulse Rate [Left Brachial] 80 Respiratory Rate 16 16 Blood Pressure 120/70 Blood Pressure [Left Arm] 125/72 Blood Pressure Mean [Left Arm] 89 Blood Pressure Source [Left Arm] Automatic Cuff Blood Pressure Position [Left Arm] Sitting 02 Sat by Pulse Oximetry 98 Oxygen Delivery Method Room Air Medical Decision Narrative: 40-year-old male presents emergency department with a rash waxing and waning, for 1 year, differential diagnose include but not limited to psoriasis, atopic dermatitis, contact dermatitis, eczema, cellulitis among others. I discussed this patient's case with the attending physician Patient has not had any new medications, no new detergents soaps, no other environmental exposure, chemical exposures, I do believe the patient has some degree of atopic dermatitis versus psoriasis, patient will need dermatology evaluation/referral, will give this to the patient here today, I will treat the patient with triamcinolone cream 0.1% cream, to use for the next 2 weeks, or until dermatology follow-up, also give the patient 100 mg p.o. doxycycline twice daily for 7 days to cover for any tickborne illness versus cellulitis as patient has some erythematous areas. Patient was given strict ED return precautions. Patient voiced understanding and agreement Contreet plan/discharge plan. I was consulted by the KAYE, and we discussed the complexity of the problems being addressed. I approve the treatment and management plan for this patient's care in the emergency department, thus performing a substantive portion of the medical decision making. Demar Dela Cruz MD Critical Care <VANDANA Leggett - Last Filed: 04/09/25 14:41> Critical Care Time Critical Care Time: No
[2025-04-09 15:04] VITALS: BP 120/70; PULSE 78; RESP 16; TEMP 36.7; O2SAT 99
== END 2025-04-09 15:05 | disposition home or self-care (01) ==
PROVIDERS: Emergency Provider Student in an Organized Health Care Education/Training Program
DX: L98.9 Disorder of the skin and subcutaneous tissue, unspecified (principal); L20.9 Atopic dermatitis, unspecified; F17.210 Nicotine dependence, cigarettes, uncomplicated
CPT/HCPCS: 99282

== ENCOUNTER 2025-06-15 13:50 | Emergency (ER) | payer SELFPAY ==
[2025-06-15 13:53] VITALS: BP 149/78; PULSE 81; RESP 18; TEMP 36.7; O2SAT 99; BMI 52.4
[2025-06-15 14:01] LABS: Coronavirus 19, PCR Not Detected (NotDetected); Influenza A, PCR Not Detected (NotDetected); Influenza B, PCR Not Detected (NotDetected)
--- NOTE | 2025-06-15 14:16 | ED_ITS ---
Discharge Plan Disposition Patient Disposition: Home, Self-Care Condition: Good Prescriptions Prescriptions: No Action fluticasone propionate [Flonase Allergy Relief] 50 mcg/actuation spray,suspension 2 spray intranasal DAILY Qty: 16 2RF Rx Instructions: administer into each nostril daily azithromycin 250 mg tablet See Rx Instructions PO .COMPLEX Qty: 6 0RF Rx Instructions: For 250 mg dose pack: take 500 mg today (day 1), then 250 mg for 4 days (days 2-5) PO doxycycline hyclate 100 mg capsule 100 mg PO BID 7 Days Qty: 14 0RF triamcinolone acetonide 0.1 % cream 1 applic topical DAILY Qty: 15 0RF Referrals Follow up/Referrals: Provider,Referral, MD [Primary Care Provider, Medical] - See instructions Activity Restrictions/Add. Instructions Additional Instructions/Restrictions: Please follow-up on MyChart for swab results. Return to the ER if symptoms persist or worsen. Thank you for allowing us to care for you. Clinical Impressions Clinical Impression: Upper respiratory infection, viral Instructions Patient Instructions: DI for Viral Upper Respiratory Infection in Adults Print Language Print Language: Romanian Discharge ED Provider: Sameer Phoenix JR General Adult HPI General Chief complaint: Upper Respiratory Infection Stated complaint: B/A, chills, loss of taste and smell Time Seen by Provider: 06/15/25 14:10 Mode of Arrival: Ambulatory Source of Information: Patient Description of Symptoms (Recalled from ER Triage Doc. by RN): Pt presents for evaluation of generalized body aches, chills, lost taste/smell, sweating since wednesday. Pt states he was exposed to covid at work. History of Present Illness HPI narrative: This is a 40-year-old male with unremarkable past medical history who presents the emergency room for evaluation of 3 days of coughing up clear and yellow sputum, nasal congestion, loss of smell and taste, generalized body aches. P atient denies chest pain, shortness of breath, headache, leg swelling. Arrives afebrile, hemodynamically stable, in no acute distress. Believes he either has COVID or flu. Requesting swab. Does not want to wait for swab results. No further complaints at this time. Related Data Previous Rx's ?Medication ?Instructions ?Recorded azithromycin 250 mg tablet See Rx Instructions PO .COM PLEX #6 02/05/25 tabs fluticasone propionate 50 2 spray intranasal DAILY #16 grams 02/05/25 mcg/actuation nasal spray,suspension (Flonase Allergy Relief) doxycycline hyclate 100 mg capsule 100 mg PO BID 7 day s #14 caps 04/09/25 triamcinolone acetonide 0.1 % 1 applic topical DAILY # 15 grams 04/09/25 topical cream Allergies Allergy/AdvReac Type Severity Reaction Status Date / Time Penicillins Allergy Severe Hives Verified 04/09/25 14:04 [facility] Disclaimer: The information contained in this section may have been updated after the patient was seen, as this information can be updated by other users. Medical History (Updated 06/15/25 @ 14:22 by Sameer Phoenix JR, DO) Otitis media Skin problem No significant past medical history Social History Smoking Status: Never smoker alcohol intake: never current occupational status: employed Travel in the last 8 weeks?: None Have you lived/traveled outside US in past 30 days?: No Contact w/someone who lives/traveled outside US past 30 days?: No Exposure to someone with infectious disease in past 14 days?: No Do you have a fever (greater than 100.4 F or 38 C)?: No Have you tested positive for COVID-19?: No Exposed to someone with COVID-19 in past 14 days?: No Do you have a sore throat?: No Do you have a cough?: No Do you have any weakness?: No Do you have any diarrhea?: No Are you experiencing any unusual bleeding?: No Do you have any muscle aches/pain?: No Do you have any abdominal pain?: No Are you experiencing loss of taste or smell?: No ROS Obtained: Yes All systems reviewed & no additional complaints except as documented and Yes Systems reviewed as appropriate & no additional complaints except as documented Constitutional Constitutional: Reports system reviewed and no additional complaints, except as documented, Reports as per HPI, Reports body ache, Denies fever(s), Denies headache(s) and Denies lethargy Eyes Eyes: Reports system reviewed and no additional complaints, except as documented and Reports as per HPI ENT Ears, Nose, Mouth, and Throat: Denies headache(s) and Reports nasal congestion Cardiovascular Cardiovascular: Denies chest pain Respiratory Respiratory: Denies shortness of breath and Reports cough Gastrointestinal Gastrointestingal: Denies abdominal pain Genitourinary Male Genitourinary: Reports system reviewed and no additional complaints, except as documented and Reports as per HPI Musculoskeletal Musculoskeletal: Reports system reviewed and no additional complaints, except as documented and Reports as per HPI Neurologic Neurologic: Reports system reviewed and no additional complaints, except as documented, Reports as per HPI and Denies headache(s) Physical Exam General General appearance: alert and in no apparent distress Head Head exam: atraumatic and normocephalic Eye Eye exam: Present normal appearance and PERRL ENT ENT exam: Present normal exam and normal oropharynx Neck Neck exam: Present normal inspection and full ROM Chest Chest inspection: Present normal inspection Respiratory Respiratory exam: Present normal lung sounds bilaterally; Absent respiratory distress, wheezes, stridor, accessory muscle use or prolonged expiratory phase Cardiovascular Cardiovascular exam: Present regular rate and normal rhythm Abdominal Exam Abdominal exam: Present soft; Absent tenderness exam: Present normal inspection Extremities Exam Extremities exam: Present normal inspection and full ROM Back Exam Back exam: Present normal inspection and full ROM Neurological Exam Neurological exam: Present alert and oriented X3; Absent CN II-XII intact Skin Skin exam: Present warm and dry Medical Decision Making Medical Records Screening: Per USPSTF and CDC recommendations, given the prevalence of disease in our region, it is our hospital?s policy to screen for HIV and viral Hepatitis for all patients aged 18 and over and those with ongoing risk factors. Bradley Inquiry Pt receiving controlled substance: No Vital Signs: 06/15/25 13:53 Temperature 98.0 F Temperature Source Temporal Artery Scan Pulse Rate [Right] 81 Respiratory Rate 18 Blood Pressure [Right Arm] 149/78 H Blood Pressure Mean [Right Arm] 101 Blood Pressure Source [Right Arm] Automatic Cuff Blood Pressure Position [Right Arm] Sitting 02 Sat by Pulse Oximetry 99 Oxygen Delivery Method Room Air Orders (Tests/Meds): ORDERS Category Date Time Status Rapid PCR Covid and Flu A/B Stat Lab 06/15/25 13:56 Received Medical Decision Narrative: 40-year-old male with unremarkable past medical history presents to the Emergency Department for evaluation of nasal congestion, loss of smell and taste, and bodyaches. Viral swab ordered. Vital signs are stable. Patient is afebrile, hemodynamically stable, in no acute distress, over well-appearing. Stable on room air. Does not want to wait for swab results. Etiology is likely a viral URI, likely COVID infection due to loss of smell and taste. Afebrile, lung sounds normal. No need for chest x-ray. Clear for discharge this time. Return precautions given. Critical Care Critical Care Time Critical Care Time: No
[2025-06-15 14:18] VITALS: BP 118/64; PULSE 79; O2SAT 97
[2025-06-15 14:45] VITALS: BP 109/73; PULSE 78; RESP 16; TEMP 36.7; O2SAT 95
== END 2025-06-15 14:47 | disposition home or self-care (01) ==
PROVIDERS: Emergency Provider Student in an Organized Health Care Education/Training Program
DX: R09.81 Nasal congestion (principal); J06.9 Acute upper respiratory infection, unspecified; B34.9 Viral infection, unspecified
CPT/HCPCS: 87636; 99283

== ENCOUNTER 2025-07-13 15:19 | Outpatient (CLI) | payer OTHER, SELFPAY ==
[2025-07-13 15:54] LABS: Hematocrit 52.5 % (42.0-52.0); Immature Granulocytes % 0.1 %; Mean Corpuscular HGB Conc 36.4 g/dL (31.8-35.4); Mean Corpuscular Hemoglobin 33.5 pg (27.0-31.2); Mean Corpuscular Volume 91.9 fl (80-94); Nucleated Red Blood Cells % 0 %; Platelet Count 182 K/mm3 (142-424); Red Blood Count 5.71 M/mm3 (4.60-6.20); Red Cell Distribution Width-SD 41.4 fL; White Blood Count 7.8 K/mm3 (4.8-10.8)
[2025-07-13 16:12] LABS: Hemoglobin A1C 5.5 % (4.0-6.0)
[2025-07-13 16:33] LABS: Alanine Aminotransferase 56 U/L (12-78); Albumin Level 4.6 g/dl (3.5-5.0); Albumin/Globulin Ratio 1.5 (1.1-1.8); Alkaline Phosphatase 58 U/L (38-126); Anion Gap 12.1 mEq/L (5-15); Aspartate Amino Transferase 39 U/L (17-59); Bilirubin,Total 1.1 mg/dl (0.2-1.3); Blood Urea Nitrogen 14 mg/dl (9-20); Calcium 10.0 mg/dl (8.4-10.2); Carbon Dioxide 28 mmol/L (22.0-30.0); Chloride 98 mmol/L (98-107); Cholesterol 144 mg/dl (140-200); Creatinine,Serum 1.10 mg/dl (0.66-1.25); Estimated Glomerular Filt Rate 74 ml/min (>60); GFR (African American) 89 ML/MIN (>60); Globulin 3.0 g/dL (1.3-3.2); Glucose 79 mg/dl (74-100); HDL Cholesterol 36 mg/dl (40-60); Potassium 4.1 mmoL/L (3.5-5.1); Sodium 134 mmol/L (136-145); Total Protein,Serum 7.6 g/dl (6.3-8.2); Triglycerides 136 mg/dl (30-150)
[2025-07-13 16:50] LABS: 25-OH Vitamin D, Total 28.3 ng/mL (30-100)
[2025-07-13 17:03] LABS: Thyroid Stimulating Hormone 1.81 uIU/mL (0.465-4.68)
[2025-07-13 17:06] LABS: Hemoglobin 19.0 g/dL (14.1-18.0)
[2025-07-13 17:22] LABS: Vitamin B12 571 pg/mL (239-931)
== END 2025-07-13 23:59 | disposition home or self-care (01) ==
DX: Z00.00 Encounter for general adult medical examination without abnormal findings (principal); E66.01 Morbid (severe) obesity due to excess calories; R53.82 Chronic fatigue, unspecified
CPT/HCPCS: 36415; 80053; 80061; 82306; 82607; 83036; 84207; 84443; 85025